=== PATIENT | female | born 1965 | race Caucasian/White ===

== ENCOUNTER 2016-04-21 18:04 | Emergency (ER) | payer OTHER ==
[~2016-04-21] VITALS: Wt 74.0 kg
[~2016-04-21 18:04] MED LIST: IBUP-1542 PO; OMEG-135 PO; OMEP40CA6 PO
== END 2016-04-22 02:55 | disposition left against medical advice (07) ==
LOC: E/R 18:04
DX: Z53.21 Procedure and treatment not carried out due to patient leaving prior to being seen by health care provider (principal)